=== PATIENT | male | born 1995 | race African-American/Black ===

== ENCOUNTER 2018-12-25 16:36 | Emergency (ER) | payer OTHER ==
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
[2018-12-25 17:00] VITALS: BP 127/79; PULSE 67; TEMP 98; BMI 20.2
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
[2018-12-25] MEDS ORDERED: NAPROXEN 500 MG TABLET (FP) PO ONE (18:17)
[2018-12-25] MEDS ORDERED: NAPROXEN 500 MG TABLET (FP) ONE (18:30)
== END 2018-12-25 19:13 | disposition home or self-care (01) ==
LOC: JER 16:36 → JERFT 16:36
DX: S00.83XA Contusion of other part of head, initial encounter (principal); V43.52XA Car driver injured in collision with other type car in traffic accident, initial encounter; Y92.414 Local residential or business street as the place of occurrence of the external cause; Y93.89 Activity, other specified; Y99.8 Other external cause status
CPT/HCPCS: 70450-TC; 72070-TC-FY; 72100-TC-FY; 99281-25